=== PATIENT | female | born 1970 | race Native Hawaiian/Other Pacific Islander ===

== ENCOUNTER 2019-06-07 09:39 | Outpatient (CLI) | payer OTHER | END 2019-06-07 20:16 | disposition home or self-care (01) | LOC: MAMMO 09:39 | DX: Z12.31 Encounter for screening mammogram for malignant neoplasm of breast (principal) ==

== ENCOUNTER 2020-08-29 16:55 | Emergency (ER) | payer OTHER ==
[~2020-08-29] VITALS: Ht 165.1 cm; Wt 53.5 kg
[2020-08-29 17:55] VITALS: BP 110/74; TEMP 98.6
== END 2020-08-29 17:55 | disposition home or self-care (01) ==
LOC: ED 16:55
DX: Z23 Encounter for immunization (principal)
CPT/HCPCS: 90471; 90715; 99282

== ENCOUNTER 2020-10-15 10:02 | Outpatient (CLI) | payer OTHER | END 2020-10-15 19:21 | disposition home or self-care (01) | LOC: US 10:02 | PROVIDERS: ATTEND Physician Assistant | DX: R22.1 Localized swelling, mass and lump, neck (principal); E53.8 Deficiency of other specified B group vitamins ==

== ENCOUNTER 2021-09-11 08:16 | Outpatient (CLI) | payer OTHER | END 2021-09-11 19:31 | disposition home or self-care (01) | LOC: CT 08:16 | PROVIDERS: ATTEND Internal Medicine | DX: R10.9 Unspecified abdominal pain (principal) ==

== ENCOUNTER 2021-11-25 08:58 | Outpatient (CLI) | payer OTHER | END 2021-11-25 19:09 | disposition home or self-care (01) | LOC: RAD 08:58 | PROVIDERS: ATTEND Internal Medicine Medical Oncology | DX: C50.411 Malignant neoplasm of upper-outer quadrant of right female breast (principal); D03.62 Melanoma in situ of left upper limb, including shoulder; M85.88 Other specified disorders of bone density and structure, other site ==

== ENCOUNTER 2022-03-24 11:02 | Outpatient (CLI) | payer OTHER ==
[2022-03-24 11:22] LABS: PLATELET COUNT 160 K/uL (152-353)
[2022-03-24 11:27] LABS: POTASSIUM 4.4 mmol/L (3.6-5.2)
== END 2022-03-24 19:33 | disposition home or self-care (01) ==
LOC: LABW 11:02
PROVIDERS: ATTEND Nurse Practitioner
DX: Z51.11 Encounter for antineoplastic chemotherapy (principal); C50.411 Malignant neoplasm of upper-outer quadrant of right female breast; D03.62 Melanoma in situ of left upper limb, including shoulder
CPT/HCPCS: 36415; 80053; 85027